=== PATIENT | female | born 1975 | race Caucasian/White ===

== ENCOUNTER 2019-11-26 06:14 | Inpatient (IN) | payer OTHER, SELFPAY ==
[~2019-11-26] VITALS: Ht 162.6 cm; Wt 80.7 kg
[2019-11-26] MEDS ORDERED: NS IRRIG SOLN 1000 ML IR ONE (07:30)
[2019-11-26] MEDS ORDERED: PROPOFOL 200MG/ 20ML VIAL (DIPRIVAN) IV ONE (07:30)
[2019-11-26] MEDS ORDERED: CEFAZOLIN 2 GM IVPB PREMIX 50 ML IV ONE (07:30)
[2019-11-26] MEDS ORDERED: MIDAZOLAM HCL 5 MG/5 ML VIAL IVP ONE (07:30)
[2019-11-26] MEDS ORDERED: LR 1,000 ML IV.SOLN IV ONE (07:30)
[2019-11-26 07:45] LABS: HCG,QUAL RESULT NEGATIVE (NEGATIVE)
[2019-11-26] MEDS ORDERED: NALBUPHINE HCL 10 MG/ML AMP IVP PRN (08:45)
[2019-11-26] MEDS ORDERED: FENT2mCg/mL-ROPIVA0.2%/NS EPID 200 ML EP SCH (08:45)
[2019-11-26] MEDS ORDERED: NALOXONE HCL 0.4 MG/ML AMP (NARCAN) IVP PRN ×2 (08:45→09:30)
[2019-11-26] MEDS ORDERED: fentaNYL CITRATE/PF 100 MCG/2 ML AMP IVP PRN ×2 (08:45)
[2019-11-26] MEDS ORDERED: DIPHENHYDRAMINE INJ 50 MG/ML VIAL IVP PRN (08:45)
[2019-11-26] MEDS ORDERED: LR 1,000 ML IV SCH (09:24)
[2019-11-26] MEDS ORDERED: HYDROcodone/ACETAMIN 5-325 MG TAB (NORCO/ VICODIN) PO PRN (09:30)
[2019-11-26] MEDS ORDERED: ONDANSETRON HCL 4 MG/2 ML VIAL IVP PRN (09:30)
[2019-11-26] MEDS ORDERED: OXYCODONE/ACETAMINOPHEN 5-325 TABLET PO PRN ×3 (09:30)
[2019-11-26] MEDS ORDERED: CEFAZOLIN 1 GM IVPB PREMIX 50 ML IV SCH (09:30)
[2019-11-26] MEDS ORDERED: FENT2mCg/mL-ROPIVA0.2%/NS EPID 200 ML EP ONE (09:53)
[2019-11-26] MEDS ORDERED: ePHEDrine sulfate 50 MG/ML VIAL IVP ONE (10:00)
[2019-11-26] MEDS ORDERED: ePHEDrine sulfate 50 MG/ML VIAL ONE (10:11)
[2019-11-26 11:57] VITALS: BP_SYST 103
[2019-11-26] MEDS: CEFAZOLIN 1 GM IVPB PREMIX 50 ML IV SCH ×2 (13:58→20:03)
[2019-11-26] MEDS: ONDANSETRON HCL 4 MG/2 ML VIAL IVP PRN (14:42)
[2019-11-26] MEDS ORDERED: MEPERIDINE HCL/PF 25 MG/ML DISP.SYRIN IM ONE (16:45)
[2019-11-26] MEDS: KETOROLAC TROMETHAMINE 30 MG VIAL IM PRN (18:53)
[2019-11-26] MEDS ORDERED: TEMAZEPAM 15 MG CAPSULE PO PRN (21:00)
[2019-11-26] MEDS ORDERED: SENNOSIDES/DOCUSATE SODIUM 1 TAB TABLET(SENOKOT-S) PO PRN (22:15)
[2019-11-26] MEDS: SIMETHICONE 80 MG TAB.CHEW PO PRN (23:51)
[2019-11-26] MEDS: DOCUSATE SODIUM 100 MG CAPSULE PO PRN (23:52)
[2019-11-27] MEDS: CEFAZOLIN 1 GM IVPB PREMIX 50 ML IV SCH (01:21)
[2019-11-27] MEDS: SIMETHICONE 80 MG TAB.CHEW PO PRN (06:26)
[2019-11-27] MEDS: DOCUSATE SODIUM 100 MG CAPSULE PO PRN (06:26)
[2019-11-27] MEDS: KETOROLAC TROMETHAMINE 30 MG VIAL IM PRN ×2 (06:29→18:05)
[2019-11-27 07:34] LABS: BASOPHILS % (AUTO) 0.1 % (0.0-2.0); EOSINOPHILS % (AUTO) 0.7 % (0.0-4.0); HEMOGLOBIN 9.1 g/dL (12.0-16.0); LYMPHOCYTES # (AUTO) 1.4 K/uL (1.0-5.5); LYMPHOCYTES % (AUTO) 20.1 % (20.5-51.5); MEAN CORPUSCULAR HEMOGLOBIN 27 pg (27-31); MEAN CORPUSCULAR HGB CONC 32 % (32-36); MEAN CORPUSCULAR VOLUME 83 fL (79.0-98.0); MONOCYTES # (AUTO) 0.6 K/uL (0.0-1.0); MONOCYTES % (AUTO) 8.5 % (1.7-9.3); NEUTROPHILS # (AUTO) 4.9 K/uL (1.8-7.7); NEUTROPHILS % (AUTO) 70.6 % (40.0-70.0); PLATELET COUNT (AUTO) 117 K/uL (130-430); RED BLOOD CELL COUNT(AUTO) 3.39 MIL/uL (4.2-6.2); RED CELL DISTRIBUTION WIDTH 15.4 % (9.0-15.0)
[2019-11-27] MEDS: ONDANSETRON HCL 4 MG/2 ML VIAL IVP PRN (18:19)
[2019-11-27] MEDS: OXYCODONE/ACETAMINOPHEN 5-325 TABLET PO PRN (22:46)
[2019-11-28] MEDS: SIMETHICONE 80 MG TAB.CHEW PO PRN (07:52)
[2019-11-28] MEDS: OXYCODONE/ACETAMINOPHEN 5-325 TABLET PO PRN (07:52)
[2019-11-28] MEDS: DOCUSATE SODIUM 100 MG CAPSULE PO PRN (07:52)
== END 2019-11-28 10:20 | disposition home or self-care (01) | DRG 743 ==
LOC: SMU 06:14 → SPU 11:36
PROVIDERS: ADMIT Specialist; ATTEND Specialist
PROC: 0UB70ZZ Excision of Bilateral Fallopian Tubes, Open Approach (ICD-10-PCS; 2019-11-26)
PROC: 0UT90ZZ Resection of Uterus, Open Approach (ICD-10-PCS; principal; 2019-11-26 07:30)
DX: D25.9 Leiomyoma of uterus, unspecified (principal); N92.0 Excessive and frequent menstruation with regular cycle; D64.9 Anemia, unspecified; N73.6 Female pelvic peritoneal adhesions (postinfective)
CPT/HCPCS: 36415; 84703; 85025; 88307; J0690; J1885; J2175; J2250; J2405; J2704; J3010; J7120; U0003-CS